=== PATIENT | female | born 2000 | race Caucasian/White ===

== ENCOUNTER 2019-08-17 13:45 | Emergency (ER) | payer MEDICAID ==
[~2019-08-17] VITALS: Ht 170.2 cm; Wt 55.5 kg
[2019-08-17 13:52] VITALS: BP 110/76
== END 2019-08-17 14:50 | disposition home or self-care (01) ==
LOC: ER 13:45
DX: J06.9 Acute upper respiratory infection, unspecified (principal)
CPT/HCPCS: 99281

== ENCOUNTER 2019-08-23 00:11 | Emergency (ER) | payer MEDICAID ==
[~2019-08-23] VITALS: Ht 170.2 cm; Wt 56.8 kg
[2019-08-23 00:12] VITALS: BP 139/82
== END 2019-08-23 00:51 | disposition home or self-care (01) ==
LOC: ER 00:11
DX: J06.9 Acute upper respiratory infection, unspecified (principal)
CPT/HCPCS: 99282

== ENCOUNTER 2020-11-05 09:32 | Emergency (ER) | payer MEDICAID ==
[~2020-11-05] VITALS: Ht 170.2 cm; Wt 59.1 kg
[2020-11-05] MEDS ORDERED: ketorolac tromethamine 15mg/ml inj. IM ONE (11:50)
[2020-11-05 12:44] VITALS: BP 100/61
== END 2020-11-05 13:00 | disposition home or self-care (01) ==
LOC: ER 09:32 → EEVIPCON 09:32 → ER 13:00
DX: R07.81 Pleurodynia (principal); M79.602 Pain in left arm
CPT/HCPCS: 71046; 96372; 99283; J1885

== ENCOUNTER 2021-06-25 06:14 | Emergency (ER) | payer BC, MEDICAID ==
[~2021-06-25] VITALS: Ht 170.2 cm; Wt 59.1 kg
[2021-06-25 06:17] VITALS: BP 111/73
== END 2021-06-25 07:04 | disposition home or self-care (01) ==
LOC: ER 06:15
DX: R07.89 Other chest pain (principal)
CPT/HCPCS: 99282